=== PATIENT | female | born 1985 | race Caucasian/White ===

== ENCOUNTER → 2022-09-03 | Outpatient (CLI) | payer BC, OTHER | LOC: M RAD 08:03 | PROVIDERS: ATTEND Nurse Practitioner Family | DX: R10.9 Unspecified abdominal pain (principal) | CPT/HCPCS: 78227; A9537 ==

== ENCOUNTER → 2022-10-11 | Outpatient (REF) | payer BC, OTHER | LOC: M LAB REF 12:35 | PROVIDERS: ATTEND Internal Medicine Gastroenterology | DX: K52.9 Noninfective gastroenteritis and colitis, unspecified (principal) ==

== ENCOUNTER → 2022-11-16 | Outpatient (CLI) | payer BC, OTHER ==
[~2022-11-16] MED LIST: DEBL1TAB PO; OMEP40CA4 PO; VITMTA PO
== END ==
LOC: M RAD 15:47
PROVIDERS: ATTEND Internal Medicine Cardiovascular Disease
DX: R01.1 Cardiac murmur, unspecified (principal); Q21.0 Ventricular septal defect

== ENCOUNTER → 2022-12-13 | Outpatient (CLI) | payer BC, OTHER | LOC: M SLEEP HO 11:13 | PROVIDERS: ATTEND Internal Medicine Cardiovascular Disease | DX: G47.33 Obstructive sleep apnea (adult) (pediatric) (principal) ==

== ENCOUNTER 2023-02-08 09:27 | Day surgery (SDC) | payer BC, OTHER ==
[~2023-02-08] VITALS: Ht 157.5 cm; Wt 90.7 kg
[~2023-02-08 09:27] MED LIST changes: +LIDOCAINE 2% 100MG/5ML SDV (FOR ANES.) As Ordered ONE; +NS 1,000 ML IV ONE; +propofoL 200 MG/20 ML VIAL As Ordered ONE
[2023-02-08] MEDS ORDERED: fentaNYL 100 MCG/2 ML INJECTION As Ordered ONE (10:07)
[2023-02-08 11:27] VITALS: BP 142/76
== END 2023-02-08 11:27 | disposition home or self-care (01) ==
LOC: M OPP 09:27
PROVIDERS: ATTEND Internal Medicine Gastroenterology
DX: K57.30 Diverticulosis of large intestine without perforation or abscess without bleeding (principal); K64.4 Residual hemorrhoidal skin tags; K64.8 Other hemorrhoids; K63.89 Other specified diseases of intestine; K29.70 Gastritis, unspecified, without bleeding; K31.A29 Gastric intestinal metaplasia with dysplasia, unspecified; K30 Functional dyspepsia; Z79.3 Long term (current) use of hormonal contraceptives
CPT/HCPCS: 43239; 45380; 88305; J3010

== ENCOUNTER → 2023-03-29 | Outpatient (CLI) | payer BC, OTHER ==
[~2023-03-29] MED LIST changes: -LIDOCAINE 2% 100MG/5ML SDV (FOR ANES.) As Ordered ONE; -NS 1,000 ML IV ONE; -propofoL 200 MG/20 ML VIAL As Ordered ONE
[2023-03-29 17:37] LABS: ALBUMIN 3.8 G/DL (3.2-5.2); ALKALINE PHOSPHATASE 51 U/L (46-116); ALT/SGPT 16 U/L (7.0-40); AST/SGOT 9 U/L (<34); BILIRUBIN,TOTAL 0.3 MG/DL (0.3-1.2); BLOOD UREA NITROGEN 11 MG/DL (9-23); CALCIUM LEVEL 9.2 MG/DL (8.5-10.1); CARBON DIOXIDE LEVEL 26 MMOL/L (20-31); CHLORIDE LEVEL 107 MMOL/L (98-107); CREATININE FOR GFR 0.78 MG/DL (0.55-1.30); GLOMERULAR FILTRATION RATE > 60.0 (>60); GLUCOSE, FASTING 76 MG/DL (60-100); POTASSIUM SERUM 3.9 MMOL/L (3.5-5.1); SODIUM LEVEL 139 MMOL/L (136-145); TOTAL PROTEIN 6.2 G/DL (5.7-8.2)
[2023-03-29 17:39] LABS: FREE T4 0.93 NG/DL (0.89-1.76); PROLACTIN 10.07 NG/ML; THYROID STIMULATING HORMONE 2.714 uIU/ML (0.55-4.78)
== END ==
LOC: M PLALAB 14:54
PROVIDERS: ATTEND Nurse Practitioner Family
DX: Z12.4 Encounter for screening for malignant neoplasm of cervix (principal)

== ENCOUNTER → 2024-03-31 | Outpatient (REF) | payer BC ==
[2024-04-02 18:12] LABS: HPV APTIMA Not Detected (Not Detected)
== END ==
LOC: M SFHCWAGY 15:33
PROVIDERS: ATTEND Nurse Practitioner Family
DX: Z12.4 Encounter for screening for malignant neoplasm of cervix (principal)
CPT/HCPCS: 87624; G0123

== ENCOUNTER → 2024-04-10 | Outpatient (CLI) | payer BC | LOC: M PLAIMG 07:37 | PROVIDERS: ATTEND Internal Medicine Cardiovascular Disease | DX: I27.20 Pulmonary hypertension, unspecified (principal); I50.32 Chronic diastolic (congestive) heart failure; Q21.0 Ventricular septal defect ==